=== PATIENT | male | born 1960 | race Caucasian/White ===

== ENCOUNTER 2019-01-23 05:42 | Emergency (ER) | payer OTHER ==
[2019-01-23] MEDS ORDERED: SODIUM CHLORIDE 0.9% FLUSH 10 ML SOL IV PRN (05:59)
[2019-01-23 06:09] VITALS: TEMP 97.4
[2019-01-23] MEDS ORDERED: DIPHENHYDRAMINE 50 MG/ML SOL IV ONE (06:09)
[2019-01-23] MEDS ORDERED: DIPHENHYDRAMINE 50 MG/ML SOL ONE (06:19)
[2019-01-23 06:51] LABS: BASOPHILS % (AUTO) 2 % (0-3); EOSINOPHILS % (AUTO) 3 % (0-9); HEMATOCRIT 43 % (39-53); HEMOGLOBIN 14.4 gm/dl (13.5-17.7); MEAN CORPUSCULAR HEMOGLOBIN 29.2 pg (27.0-32.0); MEAN CORPUSCULAR HGB CONC 33.3 gm/dl (32.0-36.0); MEAN CORPUSCULAR VOLUME 88 fL (80-100); MONOCYTES % (AUTO) 7.7 % (0-12); NEUTROPHILS % (AUTO) 68.4 % (37-80)
[2019-01-23 06:59] LABS: BLOOD UREA NITROGEN 22 mg/dl (7-18); CALCIUM 8.5 mg/dl (8.5-10.1); CARBON DIOXIDE 28.1 mEq/L (21-32); CHLORIDE 105 mMol/L (98-107); CREATININE 0.92 mg/dl (0.80-1.30); GLUCOSE 129 mg/dl (74-106); INR 0.97 (0.87-1.13); TROP I < 0.017 ng/ml (0.000-0.056)
[2019-01-23] MEDS ORDERED: SODIUM CHLORIDE 0.9% 1000ML 1,000 ML IV ONE (07:42)
[2019-01-23] MEDS ORDERED: MECLIZINE HYDROCHLORIDE 12.5 MG TAB PO ONE (07:43)
[2019-01-23] MEDS ORDERED: MECLIZINE HYDROCHLORIDE 12.5 MG TAB ONE (07:45)
[2019-01-23 08:07] LABS: APPEARANCE,URINE Clear; BILIRUBIN,URINE NEGATIVE (NEGATIVE); COLOR,URINE Yellow; GLUCOSE, URINE (UA) NEGATIVE (NEGATIVE); KETONES,URINE NEGATIVE (NEGATIVE); LEUKOCYTE ESTERASE ,URINE NEGATIVE (NEGATIVE); NITRATE,URINE NEGATIVE (NEGATIVE); OCCULT BLOOD,URINE TRACE INTACT (NEG-TRACE); PH,URINE 5.5; UROBILINOGEN,URINE 0.2 (0.2-1.0 EU)
[2019-01-23 08:13] LABS: BACTERIA NEGATIVE (< 1+); CRYSTALS NEGATIVE (0-3 AVE/HPF); EPITHELIAL CELLS 0-3 (SQUAMOUS); RBC,URINE 0-2 (0-3AV/HPF); WBC,URINE 0-1 (0-5AV/HPF)
[2019-01-23 10:33] VITALS: BP 130/82; PULSE 64; RESP 20; O2SAT 98
== END 2019-01-23 10:46 | disposition home or self-care (01) | DRG 149 ==
LOC: ED 05:42
DX: R42 Dizziness and giddiness (principal); R47.81 Slurred speech; R40.2412 Glasgow coma scale score 13-15, at arrival to emergency department
CPT/HCPCS: 36415; 70551; 80048; 81001; 82962; 84484; 85025; 85610; 85730; 93005; 96365; 96374; 99284; 99285; J1200; A9270-GY